=== PATIENT | female | born 1960 | race Hispanic/Latino ===

== ENCOUNTER → 2017-12-02 | Outpatient (CLI) | payer OTHER ==
[~2017-12-02] MED LIST: CALAN SR240 MG PO; LEVOTHYROXINE125 MCG PO
--- NOTE | 2017-12-02 16:54 | Diagnostic Imaging Report ---
TECHNIQUE: Magnetic resonance imaging of the LEFT foot was performed WITHOUT injected contrast. HISTORY: Left foot pain COMPARISON: None available. DISCUSSION: Bone: No focal or infiltrative bone marrow replacing abnormality. No acute fracture or osteonecrosis. Joints: Joint spaces preserved. Lisfranc ligament intact. Soft Tissues: Soft tissue marker placed over the region lateral midfoot. No concerning mass. Probable ganglion versus varicosity. The intermetatarsal spaces are clear. No neuroma or bursitis. The plantar plates are intact. IMPRESSION: No acute osseous or soft tissue abnormality. Soft tissue marker placed in the lateral midfoot. No concerning mass. Probable ganglion versus varicosity. Signed by: Dr. Phil Fischer M.D. on 12/02/2017 5:00 PM
== END ==
LOC: MRI 15:14
PROVIDERS: ATTEND Podiatrist Foot Surgery
DX: M72.2 Plantar fascial fibromatosis (principal); M77.9 Enthesopathy, unspecified

== ENCOUNTER 2020-10-16 13:56 | Emergency (ER) | payer OTHER ==
[~2020-10-16] VITALS: Ht 162.6 cm; Wt 65.8 kg
[2020-10-16] MEDS: CASIRIVIMAB/IMDEVIMAB 10 ML in SODIUM CHLORIDE 0.9% 100 ML IV ONE (14:39)
== END 2020-10-16 16:07 | disposition home or self-care (01) ==
LOC: ER 14:22
DX: U07.1 COVID-19 (principal); R06.00 Dyspnea, unspecified
CPT/HCPCS: 99283

== ENCOUNTER → 2022-01-19 | Outpatient (CLI) | payer OTHER | LOC: SLEEP 19:00 | PROVIDERS: ATTEND Internal Medicine Pulmonary Disease | DX: G47.33 Obstructive sleep apnea (adult) (pediatric) (principal); E03.9 Hypothyroidism, unspecified | CPT/HCPCS: 95810 ==

== ENCOUNTER 2023-11-06 16:00 | Outpatient (RCR) | payer OTHER | END 2023-11-08 | LOC: PT 16:00 | PROVIDERS: ATTEND Specialist | DX: M75.102 Unspecified rotator cuff tear or rupture of left shoulder, not specified as traumatic (principal); M25.512 Pain in left shoulder; M25.612 Stiffness of left shoulder, not elsewhere classified; M62.81 Muscle weakness (generalized) ==

== ENCOUNTER 2023-12-04 16:00 | Outpatient (RCR) | payer OTHER | END 2023-12-08 | LOC: PT 16:00 | PROVIDERS: ATTEND Specialist | DX: M75.102 Unspecified rotator cuff tear or rupture of left shoulder, not specified as traumatic (principal); M25.512 Pain in left shoulder; M25.612 Stiffness of left shoulder, not elsewhere classified; M62.81 Muscle weakness (generalized) ==

== ENCOUNTER → 2024-01-08 | Outpatient (RCR) | payer OTHER | LOC: PT 12-15 16:01 | PROVIDERS: ATTEND Specialist | DX: M75.102 Unspecified rotator cuff tear or rupture of left shoulder, not specified as traumatic (principal); M25.512 Pain in left shoulder; M25.612 Stiffness of left shoulder, not elsewhere classified; M62.81 Muscle weakness (generalized) ==